=== PATIENT | female | born 1990 | race Caucasian/White ===

== ENCOUNTER 2016-11-26 02:22 | Emergency (ER) | payer BC ==
[~2016-11-26] VITALS: Ht 180.3 cm; Wt 81.8 kg
[2016-11-26] MEDS ORDERED: PERCOCET 5/31 TABLET PO (03:20)
[2016-11-26 03:33] VITALS: BP 118/83
== END 2016-11-26 04:15 | disposition home or self-care (01) ==
LOC: EME 02:22 → EXP 02:22
PROC: 2W3LX1Z Immobilization of Right Lower Extremity using Splint (ICD-10-PCS; principal; 2016-11-26)
DX: S92.351A Displaced fracture of fifth metatarsal bone, right foot, initial encounter for closed fracture (principal); W22.09XA Striking against other stationary object, initial encounter; Y93.01 Activity, walking, marching and hiking
CPT/HCPCS: 73630; 99281; 99284

== ENCOUNTER 2017-11-18 18:02 | Outpatient (CLI) | payer BC ==
[~2017-11-18 18:02] MED LIST: PERCOCET 5/31 TABLET PO
[2017-11-18 18:14] VITALS: BP 112/73
[2017-11-18] MEDS ORDERED: ZANTAC150 MG PO (18:39)
[2017-11-18] MEDS ORDERED: EXPECTA PRENAT1 EACH PO (18:39)
[2017-11-18 19:00] VITALS: BP 121/76
== END 2017-11-18 19:33 | disposition home or self-care (01) ==
LOC: LDRP-OP 18:02 → 2WEST 18:03 → LDRP-OP 01-08 13:45
DX: O47.1 False labor at or after 37 completed weeks of gestation (principal); Z3A.37 37 weeks gestation of pregnancy
CPT/HCPCS: 59025; G0378

== ENCOUNTER 2017-12-04 22:46 | Outpatient (CLI) | payer BC ==
[~2017-12-04 22:46] MED LIST changes: +EXPECTA PRENAT1 EACH PO; +ZANTAC150 MG PO
[2017-12-04 23:58] VITALS: BP 121/73
[2017-12-05 01:12] VITALS: BP 115/64
[2017-12-05 02:18] LABS: APPEARANCE SL.HAZY ((CLEAR)); BILIRUBIN NEGATIVE; BLOOD MODERATE; COLOR YELLOW ((YELLOW)); GLUCOSE (STRIP) NEGATIVE; KETONES NEGATIVE; LEUKOCYTES LARGE; NITRITE NEGATIVE; PROTEIN (STRIP) NEGATIVE; SPECIFIC GRAVITY 1.012 (1.000-1.030); UROBILINOGEN 0.2 MG/DL (0.2-1.0)
[2017-12-05 02:22] LABS: BACTERIA RARE /HPF; EPITHELIAL CELLS 2+ /HPF; MUCUS TRACE /LPF; RED BLOOD CELLS 0-5 /HPF (0-5); WHITE BLOOD CELLS TNTC /HPF (0-5)
[2017-12-05 02:23] VITALS: BP 99/53
[2017-12-05 03:11] VITALS: BP 115/55
== END 2017-12-05 04:20 | disposition home or self-care (01) ==
LOC: LDRP-OP 22:46 → 2WEST 22:47 → LDRP-OP 01-08 19:51
PROVIDERS: Advanced Practice Midwife
DX: O47.1 False labor at or after 37 completed weeks of gestation (principal); O99.281 Endocrine, nutritional and metabolic diseases complicating pregnancy, first trimester; E06.3 Autoimmune thyroiditis; Z3A.39 39 weeks gestation of pregnancy
CPT/HCPCS: 59025; 81003; 87086; C1755; G0378; J0595; J7030

== ENCOUNTER 2017-12-05 07:54 | Inpatient (IN) | payer BC ==
[2017-12-05] VITALS (20 sets, daily range): BP systolic 103–124; BP diastolic 55–68
[~2017-12-05] VITALS: Ht 180.3 cm; Wt 99.3 kg
[2017-12-05 09:22] LABS: BASOPHIL (%) 0.1 % (0-1); EOSINOPHIL (%) 0.1 % (0-5); HEMATOCRIT 35.3 % (36.0-46.0); HEMOGLOBIN 11.8 G/DL (11.9-15.5); LYMPHOCYTE (%) 9.6 % (15-42); LYMPHOCYTE COUNT 1.4 K/uL (1.0-2.8); MCH 26.9 PG (29.0-34.0); MCHC 33.4 G/DL (30.0-36.0); MCV 80.4 FL (83-99); MONOCYTE (%) 4.8 % (3-12); MONOCYTE COUNT 0.7 K/uL (0-0.8); NEUTROPHIL (%) 83.4 % (45-76); NEUTROPHIL COUNT 12.3 K/uL (1.8-6.4); PLATELET COUNT 244 K/uL (156-360); RBC DIS.WIDTH-CV 13.7 % (11.8-14.6); RBC DIS.WIDTH-SD 39.7 % (39-53); RED BLOOD COUNT 4.39 M/uL (3.80-5.20); WHITE BLOOD COUNT 14.7 K/uL (4.1-10.2)
[2017-12-05 11:56] LABS: AMPHETAMINE NEGATIVE (500 ng/mL); BARBITURATES NEGATIVE (200 ng/mL); BENZODIAZEPINES NEGATIVE (150 ng/mL); BUPRENORPHINE NEGATIVE (10 ng/mL); COCAINE NEGATIVE (150 ng/mL); METHADONE NEGATIVE (200 ng/mL); METHAMPHETAMINE NEGATIVE (500 ng/mL); OPIATES (MORPHINE) NEGATIVE (100 ng/mL); OXYCODONE NEGATIVE (100 ng/mL); PHENCYCLIDINE NEGATIVE (25 ng/mL); PROPOXYPHENE NEGATIVE (300 ng/mL); THC CANNABINOIDS NEGATIVE (50 ng/mL); TRICYCLIC ANTIDEPRESSANTS NEGATIVE (300 ng/mL)
[2017-12-06 07:08] LABS: BASOPHIL (%) 0.3 % (0-1); EOSINOPHIL (%) 0.4 % (0-5); EOSINOPHIL COUNT 0.1 K/uL (0-0.3); HEMATOCRIT 33.6 % (36.0-46.0); IMMATURE GRANULOCYTE (%) 1.5 % (0.0-0.7); LYMPHOCYTE (%) 13.4 % (15-42); MCH 26.9 PG (29.0-34.0); MCHC 32.7 G/DL (30.0-36.0); MCV 82.2 FL (83-99); MONOCYTE (%) 6.6 % (3-12); NEUTROPHIL (%) 77.8 % (45-76); NEUTROPHIL COUNT 11.6 K/uL (1.8-6.4); PLATELET COUNT 214 K/uL (156-360); RBC DIS.WIDTH-CV 14.1 % (11.8-14.6); RBC DIS.WIDTH-SD 41.5 % (39-53); RED BLOOD COUNT 4.09 M/uL (3.80-5.20); WHITE BLOOD COUNT 14.9 K/uL (4.1-10.2)
[2017-12-07] MEDS ORDERED: IBUPROFEN800 MG PO (09:42)
[2017-12-07] MEDS ORDERED: CAMILA0.35 MG PO (09:43)
[2017-12-07] MEDS ORDERED: DOCUSATE SODIU100 MG PO (09:43)
[2017-12-07] MEDS ORDERED: FERROCITE324 MG PO (09:45)
== END 2017-12-07 17:57 | disposition home or self-care (01) | DRG 775 ==
LOC: LDRP-OP 07:54 → 2WEST 07:55 → LDRP-OP 01-08 05:52
PROVIDERS: Advanced Practice Midwife
PROC: 0KQM0ZZ Repair Perineum Muscle, Open Approach (ICD-10-PCS; principal; 2017-12-05)
PROC: 10907ZC Drainage of Amniotic Fluid, Therapeutic from Products of Conception, Via Natural or Artificial Opening (ICD-10-PCS; principal; 2017-12-05)
PROC: 00HU33Z Insertion of Infusion Device into Spinal Canal, Percutaneous Approach (ICD-10-PCS; principal; 2017-12-05)
PROC: 3E0R3BZ Introduction of Anesthetic Agent into Spinal Canal, Percutaneous Approach (ICD-10-PCS; principal; 2017-12-05)
PROC: 10E0XZZ Delivery of Products of Conception, External Approach (ICD-10-PCS; principal; 2017-12-05)
DX: O70.1 Second degree perineal laceration during delivery (principal); O69.1XX0 Labor and delivery complicated by cord around neck, with compression, not applicable or unspecified; O99.284 Endocrine, nutritional and metabolic diseases complicating childbirth; E06.3 Autoimmune thyroiditis; Z3A.39 39 weeks gestation of pregnancy; Z37.0 Single live birth
CPT/HCPCS: 59025; 81003; 85025; 87086; C1755; G0378; J0595; J3010; J7030; J7120